=== PATIENT | male | born 1945 | race Caucasian/White ===

== ENCOUNTER 2024-03-22 13:40 | Inpatient (IN) ==
[2024-03-22 14:50] LABS: Basophils # (auto) 0.05 K/uL (0.00-0.20); Basophils % (auto) 0.4 %; Eosinophils # (auto) 0.16 K/uL (0.00-0.50); Eosinophils % (auto) 1.4 %; Hematocrit (blood only) 30.8 % (42.0-52.0); Hemoglobin 10.9 g/dl (14.0-18.0); Immature Granulocytes # (auto) 0.12 K/uL (0.01-0.20); Lymphocytes # (auto) 0.77 K/uL (1.20-3.40); Lymphocytes % (auto) 6.7 %; Mean Corpuscular Hemoglobin 33.4 pg (25.0-34.0); Mean Corpuscular Hgb Conc 35.4 g/dL (32.0-36.0); Mean Corpuscular Volume 94.5 fL (80.0-100.0); Mean Platelet Volume 9.5 fL (9.4-12.4); Monocytes # (auto) 1.21 K/uL (0.11-0.59); Monocytes % (auto) 10.5 %; Neutrophils # (auto) 9.18 K/uL (1.40-6.50); Platelet Count 318 K/uL (130-400); RDW Coefficient of Variation 11.4 % (11.5-14.5); RDW Standard Deviation 39.6 fL (36.4-46.3); Red Blood Count 3.26 M/uL (4.70-6.10); White Blood Count 11.49 K/ul (4.8-10.8)
[2024-03-22 15:09] LABS: Alanine Aminotransferase 9 U/L (7-52); Albumin Globulin Ratio 1.2 (0.9-2); Albumin Level 3.9 gm/dl (3.4-5.0); Alkaline Phosphatase 51 U/L (34-104); Anion Gap 6 (3-11); Aspartate Aminotransferase 16 U/L (13-39); BUN Creatinine Ratio 21.7 (10-20); Blood Urea Nitrogen 13 mg/dl (6-23); Calcium 9.3 mg/dl (8.6-10.3); Carbon Dioxide 30 mmol/L (21-32); Chloride 98 mmol/L (98-107); Est GFR (African American) 110.8 ml/min; Est GFR (Non-African American) 95.6 ml/min; Globulin 3.3 gm/dl (2.5-4.0); Glucose 125 mg/dl (70-99(Fasting)); Potassium 4.5 mmol/L (3.5-5.1); Sodium 134 mmol/L (136-145); Total Protein 7.2 gm/dl (6.0-8.3)
[2024-03-22 15:47] LABS: Appearance Urine Clear (Clear); Bilirubin Urine Negative (Negative); Blood Urine Negative (Negative); Color Urine Yellow; Glucose Urine UA Negative (Negative); Ketones Urine 1+ (Negative); Leukocyte Esterase Urine Negative (Negative); Nitrite Urine Negative (Negative); Protein Urine Negative (Negative); Specific Gravity Urine 1.013 (1.000-1.030); Urobilinogen Urine Negative (Negative); pH Urine 6.5 (4.5-7.5)
--- NOTE | 2024-03-22 16:57 | XRay Report ---
XR knee RT 3V CLINICAL HISTORY: R knee pain s/p surgery COMPARISON: Right knee radiograph March 17, 2024. FINDINGS: Alignment of the total right knee arthroplasty is anatomic. There is no periprosthetic fra cture or unexpected radiopaque foreign body. There are skin bradly. Soft tissue swelling is present. There is a probable right knee joint effusion. IMPRESSION: 1. Intact total right knee arthroplasty. No periprosthetic fractures. No unexpected radiopaque foreig n bodies. 2. Right knee soft tissue swelling with a knee joint effusion. ACT 112: Negative or not required by law. Electronically signed by: Clint Nelson M.D. 03/22/2024 4:56 PM
--- NOTE | 2024-03-22 17:02 | Emergency Department Note ---
Impression & Plan Generalized weakness, Acute pain of right knee, Ambulatory dysfunction ED Provider Note HISTORY OF PRESENT ILLNESS: Patient is a 78-year-old male presenting with generalized weakness. Patient had a right knee replacement performed 1 week ago. at bedside who has been taking care of the patient postoperatively states that he has been declining since the surgery. She reports that he has been too weak to participate in physical therapy at home and that he has been asking for pain medications every hour on the hour secondary to increasing pain in his right knee. She denies the patient having any fevers or chills. Denies any nausea or vomiting. She reports that last night the patient was trying to go to the bathroom every hour stating that he felt like he needed to and she is worried that he might have a urinary tract infection. No reported recent falls or head injuries. Sister reports the patient seems more confused today than normal. Patient is on Eliquis. No recent antibiotic use. reports that she is unable to care for the patient at home. reports that they were trying to get the patient into [facility] rehab, but she does not think that she can care for the patient until that can be coordinated. ROS: as above PHYSICAL EXAM: Constitutional: Patient appears in no acute distress. HENT: Head: Normocephalic and atraumatic. Eyes: EOMI, PERRL Mouth/Throat: Mucous membranes moist. Neck: Trachea midline. Neck supple. Cardiovascular: RRR, No murmurs, rubs or gallops. Intact distal pulses. Pulmonary/Chest: No respiratory distress. Breath sounds clear and equal bilaterally. No wheezes or rales. Abdominal: Abdomen soft, no tenderness, rebound or guarding. Musculoskeletal: - RLE: Surgical incision along the anterior knee is clean/dry/intact. Junction in place. No significant erythema or any drainage expressed from the incision. Patient is able to flex and extend the knee. Able to straight leg raise bilaterally. Skin: Warm and dry. No rash, erythema, pallor or cyanosis Psychiatric: Appropriate mood and affect for situation. Neurological: Alert and keenly responsive. CN II-XII grossly intact, moving all extremities equally and fully. MDM: - Vitals signs showed hypertension - History obtained via patient and patient's . History as above. - Chronic conditions affecting care: Afib; HLD - Differential diagnoses include, but are not limited to: UTI; pneumonia; septic joint; post operative infection; deconditioning - Order placed for continuous cardiac monitoring. At this time, monitor showed rate of 88 bpm with normal sinus rhythm, per my interpretation. - External medical records reviewed. Discharge summary dated 03/17/2024 was reviewed. Patient was admitted at that time for right knee pain and had a total right knee arthroplasty performed on 03/17/2024. - Laboratory workup interpreted by myself showed slight leukocytosis (WBC 11.49); slight hyponatremia (Na 134); elevated CRP (12.50); normal procalcitonin - UA negative for infection - Xray right knee showed a right knee soft tissue swelling with knee joint effusion, per radiology. - CXR negative for pneumonia, per my interpretation - Patient's expresses the patient is unable to care for himself at home and she is unable to care for him as well. Will admit to inpatient service for PT/OT assessment and potential rehab placement. - Discussion was had with case loader operator about patient's case and need for admission - Patient admitted to orthopedic service for further evaluation and management. ASSESSMENT AND PLAN: Diagnosis: generalized weakness; right knee pain; ambulatory dysfunction Plan: admit Past Med/Surg History Problem List (Updated 03/22/24 @ 19:24 by Trudy Fang MD) Ambulatory dysfunction (Acute) Acute pain of right knee (Acute) Generalized weakness (Acute) Confusion Status post right knee replacement Encounter for pre-operative examination Allergic rhinitis (Acute) Elevated PSA (Acute) Medical History History of atrial fibrillation Noted on 2021 [facility] anesthesia progress note > advised to f/u with PCP History of COVID-19 (2022) Resolved Anxiety Insomnia Allergic rhinitis Hyperlipidemia BPH (benign prostatic hyperplasia) Surgical History Hx of tonsillectomy History of surgery Left quadriceps tendon repair (2021) History of colonoscopy Status post total hip replacement, left S/P appendectomy Family History Father Diabetes Mother Diabetes Sister Cancer Other Hypertension Social History Smoking Status: Never smoker Second Hand Exposure: No; Do You Dip or Chew Tobacco: No; Hx Alcohol Use: Yes Alcohol type: wine and hard liquor Hx Substance Use: No Preferred Language: Citizen Of [place] Communication Ability: Effective 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 Beliefs That Will Affect Care: None marital status: Current Living Situation: Spouse current occupational status: retired Feels Safe at Home: Yes Assistive Devices: Walker Allergies Allergies Allergy/AdvReac Type Severity Reaction Status Date / Time azithromycin Allergy Mild Rash Verified 03/22/24 18:29 erythromycin base Allergy Mild Flushing, Verified 03/22/24 18:29 nausea Macrolide Antibiotics Allergy Mild Rash Verified 03/22/24 18:29 Home Meds Home Medications Medication Instructions Recorded Confirmed ascorbic acid (vitamin C) 500 mg 500 mg PO HS ##0 03/19/22 03/22/24 tablet (Vitamin C) clonazepam 0.5 mg tablet 0.5 mg PO HS PRN Anxiety 03/19/22 03/22/24 ezetimibe 10 mg tablet 10 mg PO HS 03/19/22 03/22/24 simvastatin 20 mg tablet 20 mg PO HS 03/19/22 03/22/24 methocarbamol 500 mg tablet 500 mg PO HS PRN Spasms 02/20/24 03/22/24 multivitamin 1 tab PO DAILY 03/22/24 03/22/24 Previous Rx's Medication Instructions Recorded azelastine 137 mcg (0.1 %) nasal 2 sprays intranasal BID PRN 03/04/19 spray allergy symptoms #30 mL cetirizine 10 mg tablet 10 mg PO HS #30 tabs 03/04/19 fluticasone propionate 50 2 sprays intranasal DAILY #9.9 03/04/19 mcg/actuation nasal grams spray,suspension triazolam 0.25 mg tablet 0.25 mg PO HS #90 tabs 03/04/19 apixaban 2.5 mg tablet (Eliquis) 2.5 mg PO BID DVT prophy 30 days 03/18/24 #60 tabs oxycodone-acetaminophen 5 mg-325 1 - 2 tab PO Q6 post op pain 03/18/24 mg tablet (Percocet) control #28 tabs Results & Data (ED) Vital Signs Vital Signs - 24 hr 03/22/24 13:56 03/22/24 16:01 03/22/24 16:03 Temperature 36.7 C Temperature Source Temporal Artery Scan Pulse Rate 82 88 Pulse Rate [Apical] Respiratory Rate 18 17 Respiratory Effort / Characteristics Non-Labored Spontaneous Respiratory Depth Normal Respiratory Pattern Regular Blood Pressure 134/82 149/102 H Blood Pressure [Left Arm] Blood Pressure Mean 99 114 Blood Pressure Mean [Left Arm] Blood Pressure Position Sitting Pulse Oximetry 96 Oxygen Delivery Method Room Air Sepsis Recent Fever Within 48 Hours No Sepsis New/Unexplained Change in Mental Status No Sepsis Action Taken by Nursing No Action Required 03/22/24 16:12 03/22/24 16:30 03/22/24 16:42 Temperature Temperature Source Pulse Rate 88 85 Pulse Rate [Apical] Respiratory Rate 20 18 Respiratory Effort / Characteristics Respiratory Depth Respiratory Pattern Blood Pressure 139/88 Blood Pressure [Left Arm] Blood Pressure Mean 104 Blood Pressure Mean [Left Arm] Blood Pressure Position Pulse Oximetry Oxygen Delivery Method Sepsis Recent Fever Within 48 Hours Sepsis New/Unexplained Change in Mental Status Sepsis Action Taken by Nursing 03/22/24 16:57 03/22/24 17:00 03/22/24 17:00 Temperature Temperature Source Pulse Rate 90 Pulse Rate [Apical] 90 Respiratory Rate 22 18 Respiratory Effort / Characteristics Respiratory Depth Respiratory Pattern Blood Pressure 132/79 Blood Pressure [Left Arm] 132/79 Blood Pressure Mean 120 Blood Pressure Mean [Left Arm] 96 Blood Pressure Position Pulse Oximetry 99 Oxygen Delivery Method Room Air Sepsis Recent Fever Within 48 Hours Sepsis New/Unexplained Change in Mental Status Sepsis Action Taken by Nursing 03/22/24 17:15 03/22/24 17:27 03/22/24 17:30 Temperature Temperature Source Pulse Rate 89 87 Pulse Rate [Apical] Respiratory Rate 16 15 Respiratory Effort / Characteristics Respiratory Depth Respiratory Pattern Blood Pressure 134/76 Blood Pressure [Left Arm] Blood Pressure Mean 106 Blood Pressure Mean [Left Arm] Blood Pressure Position Pulse Oximetry Oxygen Delivery Method Sepsis Recent Fever Within 48 Hours Sepsis New/Unexplained Change in Mental Status Sepsis Action Taken by Nursing 03/22/24 17:39 03/22/24 17:45 03/22/24 18:00 Temperature Temperature Source Pulse Rate 92 H 100 H Pulse Rate [Apical] Respiratory Rate 19 18 Respiratory Effort / Characteristics Respiratory Depth Respiratory Pattern Blood Pressure 155/85 H Blood Pressure [Left Arm] Blood Pressure Mean 112 Blood Pressure Mean [Left Arm] Blood Pressure Position Pulse Oximetry Oxygen Delivery Method Sepsis Recent Fever Within 48 Hours Sepsis New/Unexplained Change in Mental Status Sepsis Action Taken by Nursing 03/22/24 18:03 03/22/24 18:30 Temperature Temperature Source Pulse Rate 91 H Pulse Rate [Apical] Respiratory Rate 17 Respiratory Effort / Characteristics Respiratory Depth Respiratory Pattern Blood Pressure 145/83 H Blood Pressure [Left Arm] Blood Pressure Mean 103 Blood Pressure Mean [Left Arm] Blood Pressure Position Pulse Oximetry Oxygen Delivery Method Sepsis Recent Fever Within 48 Hours Sepsis New/Unexplained Change in Mental Status Sepsis Action Taken by Nursing Laboratory Data 03/22/24 14:23 03/22/24 14:23 Lab Results 03/22/24 03/22/24 Range/Units 14:23 15:25 WBC 11.49 H (4.8-10.8) K/ul RBC 3.26 L (4.70-6.10) M/uL Hgb 10.9 L (14.0-18.0) g/dl Hct 30.8 L (42.0-52.0) % MCV 94.5 (80.0-100.0) fL MCH 33.4 (25.0-34.0) pg MCHC 35.4 (32.0-36.0) g/dL RDW Std Deviation 39.6 (36.4-46.3) fL RDW Coeff of Karla 11.4 L (11.5-14.5) % Plt Count 318 (130-400) K/uL MPV 9.5 (9.4-12.4) fL Immature Gran % (Auto) 1.0 % Neut % (Auto) 80.0 % Lymph % (Auto) 6.7 % [place] % (Auto) 10.5 % Eos % (Auto) 1.4 % Baso % (Auto) 0.4 % Neut # (Auto) 9.18 H (1.40-6.50) K/uL Lymph # (Auto) 0.77 L (1.20-3.40) K/uL [place] # (Auto) 1.21 H (0.11-0.59) K/uL Eos # (Auto) 0.16 (0.00-0.50) K/uL Baso # (Auto) 0.05 (0.00-0.20) K/uL Immature Gran # (Auto) 0.12 (0.01-0.20) K/uL Sodium 134 L (136-145) mmol/L Potassium 4.5 (3.5-5.1) mmol/L Chloride 98 (98-107) mmol/L Carbon Dioxide 30 (21-32) mmol/L Anion Gap 6 (3-11) BUN 13 (6-23) mg/dl Creatinine 0.60 (0.6-1.4) mg/dl Est Cr Clr Drug Dosing Not Reportable Est GFR ( Amer) 110.8 ml/min Est GFR (Non-Af Amer) 95.6 ml/min BUN/Creatinine Ratio 21.7 H (10-20) Glucose 125 H (70-99(Fasting)) mg/dl Calcium 9.3 (8.6-10.3) mg/dl Total Bilirubin 1.0 (0.2-1.0) mg/dl AST 16 (13-39) U/L ALT 9 (7-52) U/L Alkaline Phosphatase 51 (34-104) U/L C-Reactive Protein 12.50 H (0-0.5) mg/dl Total Protein 7.2 (6.0-8.3) gm/dl Albumin 3.9 (3.4-5.0) gm/dl Globulin 3.3 (2.5-4.0) gm/dl Albumin/Globulin Ratio 1.2 (0.9-2) Procalcitonin 0.05 (0-0.5) ng/ml Urine Color Yellow Urine Appearance Clear (Clear) Urine pH 6.5 (4.5-7.5) Ur Specific [place] 1.013 (1.000-1.030) Urine Protein Negative (Negative) Urine Glucose (UA) Negative (Negative) Urine Ketones 1+ H (Negative) Urine Blood Negative (Negative) Urine Nitrite Negative (Negative) Urine Bilirubin Negative (Negative) Urine Urobilinogen Negative (Negative) Ur Leukocyte Esterase Negative (Negative) Administered Medications Discontinued Medications Oxycodone HCl (Oxycodone Hcl Ir 5 Mg Tab (Immediate Release)) 5 mg PO NOW STA Stop: 03/22/24 18:16 Last Admin: 03/22/24 18:19 Dose: 5 mg Documented By: DS Imaging Data Radiologist's Impression: Knee X-Ray 03/22/24 16:15 XR knee RT 3V CLINICAL HISTORY: R knee pain s/p surgery COMPARISON: Right knee radiograph March 17, 2024. FINDINGS: Alignment of the total right knee arthroplasty is anatomic. There is no periprosthetic fracture or unexpected radiopaque foreign body. There are skin bradly. Soft tissue swelling is present. There is a probable right knee joint effusion. IMPRESSION: 1. Intact total right knee arthroplasty. No periprosthetic fractures. No unexpected radiopaque foreign bodies. 2. Right knee soft tissue swelling with a knee joint effusion. ACT 112: Negative or not required by law. Electronically signed by: Clint Nelson M.D. 03/22/2024 4:56 PM Chest X-Ray 03/22/24 17:25 XR chest 1V portable CLINICAL HISTORY: generalized confusion, elevated WBC COMPARISON STUDY: Chest radiograph February 27, 2024. FINDINGS: Lung volumes are normal. There is no consolidation to suggest pneumonia. A calcified right lung granuloma is unchanged. This is benign. There is no pneumothorax or pleural effusion. Cardiac size is normal. Mediastinal contours are normal. There is no evidence for pulmonary edema. IMPRESSION: No acute cardiopulmonary findings. ACT 112: Negative or not required by law. Electronically signed by: Clint Nelson M.D. 03/22/2024 6:07 PM Discharge Plan Visit Data Chief Complaint: Knee Injury/Pain Stated Complaint: KNEE PROBLEM ED Provider: Trudy Fang Discharge Problem: Generalized weakness, Acute pain of right knee, Ambulatory dysfunction Forms Stand Alone Forms: [facility] Prescriptions Prescriptions: No Action azelastine 137 mcg (0.1 %) aerosol,spray 2 sprays intranasal BID PRN (Reason: allergy symptoms) Qty: 30 2RF Rx Instructions: 1-2 sprays intranasal BID PRN; cetirizine 10 mg tablet 10 mg PO HS Qty: 30 0RF fluticasone propionate 50 mcg/actuation spray,suspension 2 sprays intranasal DAILY Qty: 9.9 0RF triazolam 0.25 mg tablet 0.25 mg PO HS Qty: 90 0RF clonazepam 0.5 mg Tablet 0.5 mg PO HS PRN (Reason: Anxiety) Rx Instructions: administer 30 minutes before bedtime simvastatin 20 mg tablet 20 mg PO HS ezetimibe 10 mg tablet 10 mg PO HS ascorbic acid (vitamin C) [Vitamin C] 500 mg Tablet 500 mg PO HS Qty: 0 methocarbamol 500 mg Tablet 500 mg PO HS PRN (Reason: Spasms) Eliquis 2.5 mg Tablet 2.5 mg PO BID 30 Days Qty: 60 0RF oxycodone-acetaminophen [Percocet] 5-325 mg tablet 1 - 2 tab PO Q6 MDD Ongoing Tx Qty: 28 0RF multivitamin Tablet 1 tab PO DAILY Referrals Referrals: Karolina Verdugo MD [Primary Care Provider] -
--- NOTE | 2024-03-22 18:05 | Hospitalist Consultation ---
Date of Consultation March 22, 2024 Assessment & Plan (1) Status post total knee replacement: VTE / Pain / Bowel management per primary orthopedic team Admitted by orthopedics for PT/OT likely need for placement (2) Leucocytosis: No infectious cause found on admission from history/exam/UA/CXR Recommend trending with AM labs (3) Confusion: Suspect due to combination of benzodiazepines and opiates given lack of infection found Discussed with orthopedics and planning on discontinuing opiates (4) BPH (benign prostatic hyperplasia): PVR 74ml bladder scan Consider tamsulosin if continued significant nocturia (5) Hyperlipidemia: Continue ezetimibe + Simvastatin History of Present Illness Reason for Consultation: medical management Attending Physician: Dr Fuller History of Present Illness Rolan Mcneil is a 78 year old male who presents to the ER with failure to thrive at home follow right total knee replacement by orthopedics on March 17. He reports not doing well at home and needing to go to rehabilitation. Significant nocturia. reports increased confusion at home and confirms he isn't able to get up and move around at home. Taking Percocets regularly. Some concern about alcohol mentioned to the orthopedics team although the patient denies any alcohol since his operation to me. No chest pain, fever, chills, shortness of breath, cough, abdominal pain, change in bowels, nausea, vomiting or urinary symptoms other than nocturia. Allergies Allergy/AdvReac Type Severity Reaction Status Date / Time azithromycin Allergy Mild Rash Verified 03/22/24 18:29 erythromycin base Allergy Mild Flushing, Verified 03/22/24 18:29 nausea Macrolide Antibiotics Allergy Mild Rash Verified 03/22/24 18:29 Home Medications Medication Instructions Recorded Confirmed Type azelastine 137 mcg (0.1 %) nasal 2 sprays intranasal BID PRN 03/04/19 03/22/24 Rx spray allergy symptoms #30 mL cetirizine 10 mg tablet 10 mg PO HS #30 tabs 03/04/19 03/22/24 Rx fluticasone propionate 50 2 sprays intranasal DAILY #9.9 03/04/19 03/22/24 Rx mcg/actuation nasal grams spray,suspension triazolam 0.25 mg tablet 0.25 mg PO HS #90 tabs 03/04/19 03/22/24 Rx ascorbic acid (vitamin C) 500 mg 500 mg PO HS ##0 03/19/22 03/22/24 History tablet (Vitamin C) clonazepam 0.5 mg tablet 0.5 mg PO HS PRN Anxiety 03/19/22 03/22/24 History ezetimibe 10 mg tablet 10 mg PO HS 03/19/22 03/22/24 History simvastatin 20 mg tablet 20 mg PO HS 03/19/22 03/22/24 History methocarbamol 500 mg tablet 500 mg PO HS PRN Spasms 02/20/24 03/22/24 History apixaban 2.5 mg tablet (Eliquis) 2.5 mg PO BID DVT prophy 30 days 03/18/24 03/22/24 Rx #60 tabs oxycodone-acetaminophen 5 mg-325 1 - 2 tab PO Q6 post op pain 03/18/24 03/22/24 Rx mg tablet (Percocet) control #28 tabs multivitamin 1 tab PO DAILY 03/22/24 03/22/24 History Patient History Medical History History of atrial fibrillation Noted on 2021 [facility] anesthesia progress note > advised to f/u with PCP History of COVID-19 (2022) Resolved Anxiety Insomnia Allergic rhinitis Hyperlipidemia BPH (benign prostatic hyperplasia) Surgical History Hx of tonsillectomy History of surgery Left quadriceps tendon repair (2021) History of colonoscopy Status post total hip replacement, left S/P appendectomy Family History Father Diabetes Mother Diabetes Sister Cancer Other Hypertension Social History Smoking Status: Never smoker Second Hand Exposure: No; Do You Dip or Chew Tobacco: No; Tobacco Cessation Education Requested by Patient: No Hx Alcohol Use: Yes Alcohol type: hard liquor Hx Substance Use: No Preferred Language: Frisian Communication Ability: Effective Rug Clipper Required: No Beliefs That Will Affect Care: None marital status: Current Living Situation: Spouse current occupational status: retired Other Information That Helps Us Care for You: No Feels Safe at Home: Yes Safety Concerns: Feels Safe At This Time Assistive Devices: Contacts and Walker Review of Systems Review of Systems: All systems reviewed & are unremarkable except as noted in HPI & below Physical Exam Constitutional: WD/WN, vitals as above Eyes: + anicteric sclerae; normal pupil size ENMT: external ear and nose normal, oropharynx normal Respiratory: normal respiratory effort, lungs clear to auscultation Cardiovascular: RRR, no murmur, no edema Gastrointestinal (Abdomen): normal bowel sounds, soft, nontender, no hepatosplenomegaly Skin: surgical incision inspected with orthopedics and appears clean / dry / intact Neurologic: moves all extremities and awake; not confused Psychiatric: A+Ox3, euthymic affect Results & Data Results & Data Vital Signs (Past 12 Hours) Vital Signs Temp Pulse Pulse Resp BP BP Pulse Ox 03/22/24 17:00 90 18 132/79 99 03/22/24 16:03 88 17 03/22/24 16:01 149/102 H 03/22/24 13:56 36.7 C 82 18 134/82 96 O2 Del Method 03/22/24 17:00 Room Air 03/22/24 16:03 03/22/24 16:01 03/22/24 13:56 Room Air Laboratory Results Abnormal lab results 03/22/24 03/22/24 Range/Units 14:23 15:25 WBC 11.49 H (4.8-10.8) K/ul RBC 3.26 L (4.70-6.10) M/uL Hgb 10.9 L (14.0-18.0) g/dl Hct 30.8 L (42.0-52.0) % RDW Coeff of Karla 11.4 L (11.5-14.5) % Neut # (Auto) 9.18 H (1.40-6.50) K/uL Lymph # (Auto) 0.77 L (1.20-3.40) K/uL [place] # (Auto) 1.21 H (0.11-0.59) K/uL Sodium 134 L (136-145) mmol/L BUN/Creatinine Ratio 21.7 H (10-20) Glucose 125 H (70-99(Fasting)) mg/dl C-Reactive Protein 12.50 H (0-0.5) mg/dl Urine Ketones 1+ H (Negative) Diagnostic Findings XR chest 1V portable CLINICAL HISTORY: generalized confusion, elevated WBC COMPARISON STUDY: Chest radiograph February 27, 2024. FINDINGS: Lung volumes are normal. There is no consolidation to suggest pneumonia. A calcified right lung granuloma is unchanged. This is benign. There is no pneumothorax or pleural effusion. Cardiac size is normal. Mediastinal contours are normal. There is no evidence for pulmonary edema. IMPRESSION: No acute cardiopulmonary findings. Medications Administered ER Medications Given: Oxycodone 5mg PO PG Care Time/CCT Total # of Minutes Spent Total Time Spent with Patient: Total time spent is greater than 50% in coordination of care (as documented) at patient's floor/unit and/or counseling patient: Coding Level of Care Code 70240 IN/OBS CONSULT LVL 3,45M Diagnoses Status post total knee replacement Z96.659 Leucocytosis D72.829 Confusion R41.0 BPH (benign prostatic hyperplasia) N40.0 Hyperlipidemia E78.5
--- NOTE | 2024-03-22 18:08 | XRay Report ---
XR chest 1V portable CLINICAL HISTORY: generalized confusion, elevated WBC COMPARISON STUDY: Chest radiograph February 27, 2024. FINDINGS: Lung volumes are normal. There is no consolidation to suggest pneumonia. A calcified right lung granuloma is unchanged. This is benign. There is no pneumothorax or pleural effusion. Cardiac si ze is normal. Mediastinal contours are normal. There is no evidence for pulmonary edema. IMPRESSION: No acute cardiopulmonary findings. ACT 112: Negative or not required by law. Electronically signed by: Clint Nelson M.D. 03/22/2024 6:07 PM
[2024-03-22] MEDS: oxyCODONE HCL IR 5 MG TAB (IMMEDIATE RELEASE) PO STA (18:19)
--- NOTE | 2024-03-22 18:45 | History & Physical Report ---
<Statement entered by Berry Fuller MD - 03/22/24 20:53> agree with above. Date of Service March 22, 2024 Assessment & Plan (1) Status post right knee replacement: Plan: The patient's postsurgical dressings will be kept in place. Continue with his SAMUEL hose for DVT prophylaxis. Continue Eliquis 2.5 mg twice daily. He missed his dose this morning according to his , and he will be restarted this evening. Continue ice and elevation for pain and edema control. We will stop his narcotics. Start Tylenol 650 mg every 6 hours and Celebrex 200 mg daily for pain control. Stat PT/OT evaluations in the morning in anticipation of half-way facility placement. This will be applied for tomorrow. The patient is clearly not doing well at home and does not have the support network that he needs. [facility] was [facility] while he was initially inpatient after surgery, and was declined at that time. Weightbearing as tolerated on the right leg with his walker. (2) Confusion: Plan: The patient is on 2 benzodiazepines. Addition of oxycodone may have exacerbated his confusion. His narcotic will be stopped. Start Tylenol and Celebrex as stated. Consult the medical service for evaluation. The patient is known to drink liquor, and his states it is heavy at times. This may have also added to his confusion. I will discuss the antibiotic supplementation with the hospitalist team. He does not appear to have a urinary tract infection. There is no significant anemia or electrolyte imbalance to contribute to his symptoms. Chest x-ray does not suggest infection. Therefore, I think his confusion symptoms may be medication induced. Admission and Anticipated Discharge Date Admission Date: 03/22/24 History of Present Illness Chief Complaint: Confusion and urinary urgency after right knee surgery Primary Care Provider: Karolina Verdugo MD This 78-year-old male seen today in the ED for evaluation of several complaints. The patient previously had a right total knee arthroplasty done by Dr. Fuller on 03/17/2024. Patient did well postoperatively and was discharged to home on 03/18/2024. He is being cared for by his . She states that over the weekend he became more confused and was complaining of urinary urgency and frequency. The patient did not have a urinary catheter at the time of surgery. They deny any fevers or chills. No sweats. He has had some episodes of diarrhea and frequent loose stools. He has been receiving home health and had home physical therapy today. His therapist reportedly had to redirect him many times, but he was able to complete his therapy session. At this time, his states she can no longer take care of him at home due to her own physical ailments. [facility] are [facility] at [facility] or [facility]-way facility. The patient denies any chest pain, shortness of breath, nausea, vomiting, or abdominal pain. They have been keeping his knee clean, covered, and dry. Allergies Allergy/AdvReac Type Severity Reaction Status Date / Time azithromycin Allergy Mild Rash Verified 03/22/24 18:29 erythromycin base Allergy Mild Flushing, Verified 03/22/24 18:29 nausea Macrolide Antibiotics Allergy Mild Rash Verified 03/22/24 18:29 Home Medications Medication Instructions Recorded Confirmed Type azelastine 137 mcg (0.1 %) nasal 2 sprays intranasal BID PRN 03/04/19 03/22/24 Rx spray allergy symptoms #30 mL cetirizine 10 mg tablet 10 mg PO HS #30 tabs 03/04/19 03/22/24 Rx fluticasone propionate 50 2 sprays intranasal DAILY #9.9 03/04/19 03/22/24 Rx mcg/actuation nasal grams spray,suspension triazolam 0.25 mg tablet 0.25 mg PO HS #90 tabs 03/04/19 03/22/24 Rx ascorbic acid (vitamin C) 500 mg 500 mg PO HS ##0 03/19/22 03/22/24 History tablet (Vitamin C) clonazepam 0.5 mg tablet 0.5 mg PO HS PRN Anxiety 03/19/22 03/22/24 History ezetimibe 10 mg tablet 10 mg PO HS 03/19/22 03/22/24 History simvastatin 20 mg tablet 20 mg PO HS 03/19/22 03/22/24 History methocarbamol 500 mg tablet 500 mg PO HS PRN Spasms 02/20/24 03/22/24 History apixaban 2.5 mg tablet (Eliquis) 2.5 mg PO BID DVT prophy 30 days 03/18/24 03/22/24 Rx #60 tabs oxycodone-acetaminophen 5 mg-325 1 - 2 tab PO Q6 post op pain 03/18/24 03/22/24 Rx mg tablet (Percocet) control #28 tabs multivitamin 1 tab PO DAILY 03/22/24 03/22/24 History Past Med/Surg History Problem List (Updated 03/22/24 @ 18:47 by Evangelist Dewey PA-C) Confusion Status post right knee replacement Encounter for pre-operative examination Allergic rhinitis (Acute) Elevated PSA (Acute) Medical History History of atrial fibrillation Noted on 2021 [facility] anesthesia progress note > advised to f/u with PCP History of COVID-19 (2022) Resolved Anxiety Insomnia Allergic rhinitis Hyperlipidemia BPH (benign prostatic hyperplasia) Surgical History Hx of tonsillectomy History of surgery Left quadriceps tendon repair (2021) History of colonoscopy Status post total hip replacement, left S/P appendectomy Family History Father Diabetes Mother Diabetes Sister Cancer Other Hypertension Social History Smoking Status: Never smoker Second Hand Exposure: No; Do You Dip or Chew Tobacco: No; Hx Alcohol Use: Yes Alcohol type: wine and hard liquor Hx Substance Use: No Preferred Language: Korean Communication Ability: Effective Supervisor Process Testing Required: No Beliefs That Will Affect Care: None marital status: Current Living Situation: Spouse current occupational status: retired Feels Safe at Home: Yes Assistive Devices: Walker Review of Systems Review of Systems: All systems reviewed & are unremarkable except as noted in HPI & below Physical Exam Physical Exam: General: Frail, elderly male, in no acute distress. Laying in bed. Alert and oriented to place, but does exhibit intermittent confusion when searching for words or completing his sentences. Petite individual. Skin: Warm and dry with good turgor. No rashes. He has a postsurgical incision on the right knee. Pollock are in place. Wound edges are well-approximated. No erythema or warmth. No drainage. No signs of infection. Minimal intra- articular effusion. No significant peripheral edema. HEENT: Normocephalic atraumatic. Eyes PERRLA, EOMI. No conjunctiva or scleral injection. Ears TMs intact bilaterally with good light reflexes. No erythema or bulging. No hemotympanum. Canals are patent. Nares patent bilaterally without turbinate enlargement. No significant drainage. No epistaxis. Oropharynx without erythema or exudate. Uvula midline, oral mucosa moist. No lesions present. Lymphatics are palpated without anterior or posterior chain enlargement or tenderness. Heart: Heart RRR. No MGR. Peripheral pulses are 2+. Lungs: Clear to auscultation bilaterally. No crackles, rhonchi, or wheezing. Good air movement. Abdomen: Bowel sounds present x 4. Soft nontender. No organomegaly. No masses. Musculoskeletal: Gross motor function of the upper and lower extremities is intact and unremarkable. He lacks approximately 5 to 10 degrees of terminal extension. Flexion to 65 degrees. He is able to perform a straight leg raise. He is able to set his quad. Neurologic: Gross sensation is intact across the lower extremities by soft touch. Peripheral pulses are 2+. Psych: The patient is alert and oriented to place as stated. He is perseverating about his Percocet dose. He states he is due for it now. He states he does not have any additional pills at home because they were dropped on the floor lost. His corrects him stating that they were not lost and he just simply ran out. During my evaluation he asked for Percocet at least 6 times. Occasional difficulty finding words. Results & Data Results & Data Vital Signs (Past 12 Hours) Vital Signs Temp Pulse Pulse Resp BP BP Pulse Ox 03/22/24 18:03 91 H 17 03/22/24 18:00 155/85 H 03/22/24 17:45 100 H 18 03/22/24 17:39 92 H 19 03/22/24 17:30 134/76 03/22/24 17:27 87 15 03/22/24 17:15 89 16 03/22/24 17:00 132/79 03/22/24 17:00 90 18 132/79 99 03/22/24 16:57 90 22 03/22/24 16:42 85 18 03/22/24 16:30 139/88 03/22/24 16:12 88 20 03/22/24 16:03 88 17 03/22/24 16:01 149/102 H 03/22/24 13:56 36.7 C 82 18 134/82 96 O2 Del Method 03/22/24 18:03 03/22/24 18:00 03/22/24 17:45 03/22/24 17:39 03/22/24 17:30 03/22/24 17:27 03/22/24 17:15 03/22/24 17:00 03/22/24 17:00 Room Air 03/22/24 16:57 03/22/24 16:42 03/22/24 16:30 03/22/24 16:12 03/22/24 16:03 03/22/24 16:01 03/22/24 13:56 Room Air Laboratory Results CBC obtained today shows a white count of 11.49. H&H of 10.9 and 30.8. Platelets are normal at 318,000. CMP shows normal electrolytes. BUN of 13 with creatinine 0.60. Nonfasting glucose is 125. Normal calcium. Normal LFTs. C- reactive protein is elevated today at 12.5, which is not unexpected given his surgery 5 days ago. Procalcitonin is normal at 0.05. UA obtained today shows clear yellow urine with negative leukocyte Estrace, nitrates, and bilirubin. 1+ ketones. Diagnostic Findings Right knee x-ray obtained today was read by radiology as unremarkable. Expected postsurgical findings. Chest x-ray obtained today was also read by radiology. No consolidations to suggest pneumonia. Previous right calcified granuloma is unchanged. No pneumothorax or pleural effusion. Code Status & VTE Plan VTE Prophylaxis Plan VTE Prophylaxis will be ordered: Yes
[2024-03-22] MEDS ORDERED: MAGNESIUM HYDROXIDE SUSP 30 ML UDC PO PRN (18:53)
[2024-03-22] MEDS ORDERED: ONDANSETRON INJ 2 MG/ML 2 ML VIAL IV PRN (18:53)
[2024-03-22] MEDS ORDERED: ALUMINUM/MAGNESIUM SUSP 30 ML UDC PO PRN (18:53)
[2024-03-22] MEDS ORDERED: AZELASTINE HCL 0.1% NASAL 200 SPRAYS/27,400 MCG BTL NAE PRN (19:02)
[2024-03-22] MEDS ORDERED: METHOCARBAMOL 500 MG TABLET PO PRN (19:02)
[2024-03-22] MEDS: APIXABAN 2.5 MG TAB PO SCH (21:58)
[2024-03-22] MEDS: SIMVASTATIN 20 MG TAB PO SCH (21:58)
[2024-03-22] MEDS: EZETIMIBE 10 MG TAB PO SCH (21:58)
[2024-03-22] MEDS: CeleBREX 200 MG CAP PO SCH (21:58)
[2024-03-22] MEDS: CETIRIZINE HCL 10 MG TABLET PO SCH (21:58)
[2024-03-22] MEDS: ASCORBIC ACID 500 MG TAB PO SCH (21:58)
[2024-03-22] MEDS: ACETAMINOPHEN 325 MG TAB PO PRN (23:55)
[2024-03-23] MEDS: clonazePAM 0.5 MG TAB PO PRN (00:59)
--- OUTSIDE RECORDS SUMMARY | 2024-03-23 01:58 | External Medical Summary | Continuity of Care Document ---
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 Machine Name Role Phone Lucina Karolina Primary Care Physician [phone] [id number] Date(s): 03/15/24 - 03/15/24 [facility] [address], [address] [place] [address] [phone] Encounter Diagnosis Preop examination(Discharge Diagnosis) - 03/15/24 Ectopic atrial rhythm(Discharge Diagnosis) - 03/15/24 Discharge Disposition: Home or Self Care Attending Physician: DO Hernandez Michelle L Allergies, Adverse Reactions, Alerts Substance Criticality Severity Reaction Reaction Severity Status erythromycin vomiting Active Bee sting anaphylaxis Active Assessment and Plan Extracted from: Title:Cardiology Office Visit Note Author:DO Hernandez Michelle L Date:03/15/24 Ectopic atrial rhythm Preop examination From a cardiac standpoint he does not require further cardiovascular testing at this time. His EKG is identical to the one from 2021. In addition he did have a stress echoback [id number] good exercise tolerancewithout EKG or echo abnormalities. I asked him to touch base with regarding his usualrecommendations regarding DVT prophylaxis. I would not be opposed if he was given aspirin postophowever that would be up to Dr. Fuller. You for allowing me to participate in his care. If there are any questions or concerns with his surgery, please feel free to contact me. Immunizations Given and Recorded Vaccine Date Status Refusal Reason influenza virus vaccine, inactivated 03/11/22 Carlos rded influenza virus vaccine, inactivated 03/30/21 Carlos rded influenza virus vaccine, inactivated 04/13/20 Carlos rded influenza virus vaccine, inactivated 05/06/14 Give n SARS-CoV-2 (COVID-19) mRNA-1273 vaccine 1 05/24/21 Recorded zoster vaccine, inactivated 06/16/19 Recorded zoster vaccine, inactivated 02/10/19 Recorded pneumococcal 13-valent vaccine 2 04/29/18 Recorded pneumococcal 13-valent vaccine 3 04/28/17 Recorded hepatitis B adult vaccine 09/24/17 Given hepatitis B adult vaccine 06/02/17 Given hepatitis B adult vaccine 03/13/17 Recorded hepatitis A adult vaccine 09/24/17 Given hepatitis A adult vaccine 03/13/17 Recorded hepatitis A-hepatitis B vaccine 4 03/17/17 Recorde d pneumococcal 23-valent vaccine 04/03/16 Recorded pneumococcal 23-valent vaccine 05/20/11 Recorded tetanus/diphtheria/pertuss, acel (Tdap) 03/30/14 G iven typhoid vaccine, live 12/07/13 Recorded zoster vaccine live 01/06/13 Recorded zoster vaccine live 07/28/10 Recorded zoster vaccine live 5 07/28/10 Recorded influenza virus vaccine, H1N1 6 08/26/09 Recorded yellow fever vaccine 01/12/08 Recorded tetanus toxoids-diphtheria, Td (Adult) 07/28/06 Re corded tetanus toxoids-diphtheria, Td (Adult) 7 07/28/06 Recorded tetanus toxoid 07/28/96 Recorded tetanus toxoid 8 07/28/96 Recorded 1Result Comment: 2021-06-04: Historical information-source unspecified 2Result Comment: 2019-05-19: Historical information-source unspecified 3Result Comment: 2019-05-19: Historical information-source unspecified 4Result Comment: 2019-05-19: Historical information-source unspecified 5Result Comment: 2019-05-19: Historical information-source unspecified 6Result Comment: 2020-05-22: Historical information-source unspecified 7Result Comment: 2019-05-19: Historical information-source unspecified 8Result Comment: 2019-05-19: Historical information-source unspecified Medications azelastine 137 mcg/inh (0.1%) nasal spray Start: 06/04/21 2:09:00 PM EST, 2 spray, each nostril, bid, Disp# 3 each, Refills: 3, PRN: as neededfor allergy symptoms, Pharmacy: [facility] Start Date: 06/04/21 Status: Ordered Cialis 20 mg oral tablet Start: 06/09/23 1:35:00 PM EST, See Instructions, Disp# 6 tab, Refills: 6, 1 tab PO every 3 days prn, PRN: as needed for erectile dysfunction, Pharmacy: [id number] Start Date: 06/09/23 Status: Ordered clonazePAM 0.5 mg oral tablet Start: 02/10/24 8:30:00 AM EDT, 1 tab, PO, bid, Disp# 60 tab, Refills: 1, PRN: anxiety, Pharmacy: [facility]/pharmacy #[id number] Start Date: 02/10/24 Stop Date: 04/10/24 Status: Ordered diclofenac sodium 75 mg oral delayed release tablet Start: 04/01/23 3:00:00 PM EDT, 1 tab, PO, bid, Disp# 180 tab, Refills: 3, PRN: as needed for pain, Pharmacy: [facility] Start Date: 04/01/23 Status: Ordered Euflexxa 10 mg/mL intra-articular solution Start: 10/09/23 5:31:00 PM EDT, 20 mg =, intra-articular, q7days, Disp# 6 mL, Refills: 0, R KNEE [id number], Note to Pharmacy: 3 syringes for R knee. Please ship to physician's office: [address] [place] [address], [place] [id number], Pharmacy: [facility] Start Date: 10/09/23 Stop Date: 10/30/23 Status: Ordered Flonase 50 mcg/inh nasal spray Start: 02/26/22 9:45:00 AM EDT, 2 spray, intranasal, Daily, Disp# 15.8 mL, Refills: 3, Pharmacy: [facility] Start Date: 02/26/22 Status: Ordered simvastatin 20 mg oral tablet Start: 09/25/23 4:09:00 PM EST, 1 tab, PO, qhs, Disp# 90 tab, Refills: 4, Pharmacy: [facility] Start Date: 09/25/23 Status: Ordered triazolam 0.25 mg oral tablet Start: 02/10/24 8:35:00 AM EDT, 1 tab, PO, qhs, Disp# 30 tab, Refills: 1, PRN: as needed for sleep, Pharmacy: [facility]/pharmacy #[id number] Start Date: 02/10/24 Stop Date: 04/10/24 Status: Ordered Zetia 10 mg oral tablet Start: 04/01/23 3:00:00 PM EDT, 1 tab, PO, Daily, Disp# 90 tab, Refills: 3, Pharmacy: [facility] Start Date: 04/01/23 Status: Ordered Mental Status 03/15/24 Barriers to Learning one year None evide nt Mandatory Health Literacy Documentation Yes Health Literacy Communication Barriers N ever Primary Language Ukrainian Problem List Condition Confirmation Course Effective Dates Status H ealth Status Informant DDD (degenerative disc disease), cervical Confirmed Active Generalized anxiety disorder Confirmed Active Hip 1 Confirmed Active Hip pain, bilateral Confirmed Active Insomnia Confirmed Active Insomnia due to medical condition Confirmed Active Osteoarthritis of hip Confirmed Active Right knee DJD Confirmed Active Rupture of left quadriceps tendon Confirmed Active Seasonal allergies Confirmed Active 1B/L hip OA Diagnosis Diagnosis Type Effective Dates Health Status Clinical Service Informant Ectopic atrial rhythm Discharge Diagnosis 03/15/24 Non-Specified Preop examination Discharge Diagnosis 03/15/24 Non-Specified Procedures Procedure Date Related Diagnosis Body Site Status Repair of quadriceps tendon left 03/21/[address] of cervical spine 1 03/15/[address] of head 2 03/15/[address] of lumbar spine 3 03/15/[address] of thoracic spine 4 03/15/22 Co mpleted X-ray of left knee 5 03/15/22 Comp leted Colonoscopy 6 04/15/14 Completed Appendectomy 1970 Completed Colonoscopy 7 Completed Hip replacement 8 Complet ed Scalp 9 Completed 1mpressio fractures within the cervical spine 2Impression: No acute intracranial abnormality. Atrophy and microvascular ischemic changes. 3Impression: No fractures within the lumbar spine. 4Impression: No fractures within the thoracic spine. 5Impression: Suspect an avulsion fracture along the superior pole of the patella with superiorly displaced fragments. There is significant prepatellar soft tissue edema, withsoft tissue thickening superiro to the patella. This could represent a ruptured and retracted quadriceps tendon clinically suspected. No additional fracture is seen. Joint effusion. 6Non bleeding internal hemorrhoids. 34939: normal 8left 9seb cysts remvd Vital Signs Most recent to oldest [Reference Range]: 1 Patient Weight 52.5 kg (03/15/24 12:33 PM) Heart Rate 90 bpm (03/15/24 12:33 PM) Respiratory Rate 18 br/min (03/15/24 12:33 PM) Blood Pressure 122/68mmHg (03/15/24 12:33 PM) Cuff Pulse Pressure 54 mmHg (03/15/24 12:33 PM) Social History Social History Type Response Smoking Status Never smoked cigaret jb Sex Male Sex Representation Male (finding) Cardiology Outpatient Note * DO Hernandez Michelle L: PERFORM Event Display: Cardiology Outpt Note Authored Date: [id number] Primary Care Provider MD Lucina, [place] Referring Provider Dr. Berry Fuller Reason for Consultation Preop clearance History of Present Illness Dr. 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 He has been active for most of his adult life. 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 Over the last 3 to 4 months he has developed significant right knee problemsand is here for preop clearance prior to right total knee replacement with Dr. Fuller later this week. There was some concernregarding hispreop EKG. It shows a baseline ectopic atrial rhythmwith a short DC interval however this EKG looks identical to the EKG he had in 2021. His P wave the DC interval were identical and there were no other EKG changesat the time. In addition a postop EKG must have been done because of an irregular heartbeat and I think it is misinterpreted as having A-fibwhen it is actually the ectopic atrial rhythm with just PACs. There is a little bit of baseline artifact however in leads II and III you can clearly see P waves on thatold EKG from March 21and I thinkthis was notA-fib. From a cardiovascular standpoint he denies any cardiac symptoms. He denies chest discomfortshortness of breathlower extremity edema. Prior to 3 to 4 months ago he wasfairly activegivenhis orthopedicissues. Review of Systems General: no fevers, chills, weight loss of gain HEENT: no changes in vision or hearing; no recent falls or head trauma Cardiac: No other symptoms other than reported in HPI Pulmonary: No symptoms other than reported in HPI Abdomen: No changes in bowel habits, nausea, vomiting, no BRBPR : no changes in urine frequency Extremities: no edema or claudication Physical Exam Vitals & Measurements HR:90(Monitored) RR:18 BP:122/68 SpO2:98% WT:52.5kg WT:52.500kg(Dosing) Patient is awake alert and oriented x3and in no acute distress HEENT:2+ carotid upstrokes, no evidence of carotid bruits LUNGS:Clear to auscultation bilaterally no rales rhonchi or wheezing HEART:Regular rate and rhythmno appreciable murmurs rubs or gallops ABDOMEN:Soft nontender nondistended positive bowel sounds EXTREMITIES:No evidence of clubbing cyanosis or edema PSYCHIATRIC:Patients affect appeared appropriate Diagnostic Results Stress echo from 2019 normal LV function no significant valvular abnormalities normal exercise tolerance EKG Ectopic atrial rhythm with a short DC intervalno ST-T wave changes Assessment/Plan Ectopic atrial rhythm Preop examination From a cardiac standpoint he does not require further cardiovascular testing at this time. His EKG is identical to the one from 2021. In addition he did have a stress echoback [id number] good exercise tolerancewithout EKG or echo abnormalities. I asked him to touch base with regarding his usualrecommendations regarding DVT prophylaxis. I wouldnot be opposed if he was given aspirin postophowever that would be up to Dr. Fuller. You for allowing me to participate in his care. If there are any questions or concerns with his surgery, please feel free to contact me. Problem List/Past Medical History Ongoing DDD (degenerative disc disease), cervical Generalized anxiety disorder Hip Hip pain, bilateral Insomnia Insomnia due to medical condition Osteoarthritis of hip Right knee DJD Rupture of left quadriceps tendon Seasonal allergies Ectopic atrial rhythm on EKG 2021 and 2023Short DC interval Procedure/Surgical History Repair of quadriceps tendon left| Service Date: 03/21/2022T of lumbar spine| Service Date: 03/15/2022T of head| Service Date: 03/15/2022T of thoracic spine| Service Date: 03/15/2022T of cervical spine| Service Date: 03/15/2022X-ray of left knee| Service Date: 03/15/2022olonoscopy| Service Date: 04/15/2014ppendectomy| Service Date: 1969ColonoscopyHip replacementScalp Medications azelastine nasal(azelastine 137 mcg/inh (0.1%) nasal spray), 2 spray, each nostril, bid, PRN, 3 refills clonazePAM(clonazePAM 0.5 mg oral tablet), 0.5 mg= 1 tab, PO, bid, PRN, 1 refills diclofenac(diclofenac sodium 75 mg oral delayed release tablet), 75 mg= 1 tab, PO, bid, PRN, 3 refills ezetimibe(Zetia 10 mg oral tablet), 10 mg= 1 tab, PO, Daily, 3 refills fluticasone nasal(Flonase 50 mcg/inh nasal spray), 2 spray, intranasal, Daily, 3 refills simvastatin(simvastatin 20 mg oral tablet), 20 mg= 1 tab, PO, qhs, 4 refills sodium hyaluronate(Euflexxa 10 mg/mL intra-articular solution), 20 mg, intra- articular, q7days tadalafil(Cialis 20 mg oral tablet), See Instructions, PRN, 6 refills triazolam(triazolam 0.25 mg oral tablet), 0.25 mg= 1 tab, PO, qhs, PRN, 1 refills Allergies Bee stinganaphylaxis erythromycinvomiting Social History Smoking Status Never smoked cigarettes Alcohol - Low Risk Employment/School Status:Retired Exercise - Regular exercise - Comments: biking 20-30 m evelio 2-3 times a week Tobacco - Denies Tobacco Use Family History Diabetes: Father. Glioma: Sister. Heart attack: MGF. Uterine cancer: Mother. Health Status Family Member(s) Electronic Signature on File CC: Berry Fuller MD [address] [id number] CC: Karolina Verdugo MD [address] [facility] [id number] Electronically Reviewed/Signed by: Felicity Hernandez DO Author Signature Dt/Tm:03/15/2024 01:22 PM Division of General Cardiology MLS Patient Care team information Care Team Personnel Name: MD Verdugo [place] Position: Physician - Family Med Member Role: Primary Care Provider Address: [address] [place] [address], [place] [address] [place] Care Team Related Persons Name: LINDSEY ALVARADO"
[2024-03-23] MEDS: MULTIVITAMIN TAB PO SCH (07:38)
[2024-03-23] MEDS: PANTOprazole 40 MG TAB PO SCH (07:38)
[2024-03-23] MEDS: FLUTICASONE PROPIONATE NA SPR 16 GM BTL SCH (07:39)
[2024-03-23 08:45] LABS: Basophils # (auto) 0.05 K/uL (0.00-0.20); Basophils % (auto) 0.7 %; Eosinophils # (auto) 0.22 K/uL (0.00-0.50); Hematocrit (blood only) 27.8 % (42.0-52.0); Hemoglobin 9.8 g/dl (14.0-18.0); Immature Granulocytes # (auto) 0.03 K/uL (0.01-0.20); Immature Granulocytes % (auto) 0.4 %; Lymphocytes # (auto) 1.01 K/uL (1.20-3.40); Lymphocytes % (auto) 13.8 %; Mean Corpuscular Hemoglobin 32.9 pg (25.0-34.0); Mean Corpuscular Hgb Conc 35.3 g/dL (32.0-36.0); Mean Corpuscular Volume 93.3 fL (80.0-100.0); Mean Platelet Volume 9.5 fL (9.4-12.4); Monocytes # (auto) 1.03 K/uL (0.11-0.59); Monocytes % (auto) 14.1 %; Neutrophils # (auto) 4.97 K/uL (1.40-6.50); Platelet Count 290 K/uL (130-400); RDW Coefficient of Variation 11.2 % (11.5-14.5); RDW Standard Deviation 38.2 fL (36.4-46.3); Red Blood Count 2.98 M/uL (4.70-6.10); White Blood Count 7.31 K/ul (4.8-10.8)
--- NOTE | 2024-03-23 09:52 | Orthopedic Progress Note ---
Date of Service March 23, 2024 Assessment & Plan (1) Status post right knee replacement: Plan: The patient's postsurgical dressings will be kept in place. Continue with his SAMUEL hose for DVT prophylaxis. Continue Eliquis 2.5 mg twice daily. He missed his dose this morning according to his , and he will be restarted this evening. Continue ice and elevation for pain and edema control. We will stop his narcotics. Start Tylenol 650 mg every 6 hours and Celebrex 200 mg daily for pain control. Stat PT/OT evaluations in the morning in anticipation of retirement facility placement. This will be applied for tomorrow. The patient is clearly not doing well at home and does not have the support network that he needs. [facility] was made while he was initially inpatient after surgery, and was declined at that time. Weightbearing as tolerated on the right leg with his walker. (2) Confusion: Plan: The patient is on 2 benzodiazepines. Addition of oxycodone may have exacerbated his confusion. His narcotic will be stopped. Start Tylenol and Celebrex as stated. Consult the medical service for evaluation. The patient is known to drink liquor, and his states it is heavy at times. This may have also added to his confusion. I will discuss the antibiotic supplementation with the hospitalist team. He does not appear to have a urinary tract infection. There is no significant anemia or electrolyte imbalance to contribute to his symptoms. Chest x-ray does not suggest infection. Therefore, I think his confusion symptoms may be medication induced. Admission and Anticipated Discharge Date Admission Date: March 22, 2024 Subjective This 78-year-old male seen this morning after being admitted yesterday for confusion after undergoing right total knee arthroplasty with Dr. Fuller on March 17. Patient is still slightly confused this morning and angry that he is admitted. He states that his is at home wondering where he is at. I advised the patient that his is aware that he is in the hospital and that there is a high likelihood that he will need to go to a rehab facility for skilled rehab following this major surgery. Currently the patient denies chest pain, shortness of breath, fever, chills, sweats, numbness or tingling in his right lower extremity. He also denies nausea, vomiting, diarrhea or difficulty voiding. Review of Systems Review of Systems: All systems reviewed & are unremarkable except as noted in Subjective Physical Exam Physical Exam: Right knee: Dressing was clean dry and intact and left in place. Patient is able to perform active straight leg raise test. He is able to actively dorsi and plantarflex foot. His calf soft and supple nontender to palpation. Knee range of motion is from 2 degrees of extension to 80 degrees of flexion actively. Patient is able to detect light sensation to touch of the pads of all digits. He is neurovascularly intact in right lower extremity. Results & Data Vital Signs (Past 12 Hours) Vital Signs Temp Pulse Resp BP Pulse Ox O2 Del Method 03/23/24 07:59 37.1 C 84 16 129/75 96 Room Air Diagnostic Findings Laboratory Results WBC 7.31 K/ul (4.8-10.8) 03/23/24 07:39 RBC 2.98 M/uL (4.70-6.10) L 03/23/24 07:39 Hgb 9.8 g/dl (14.0-18.0) L 03/23/24 07:39 Hct 27.8 % (42.0-52.0) L 03/23/24 07:39 MCV 93.3 fL (80.0-100.0) 03/23/24 07:39 MCH 32.9 pg (25.0-34.0) 03/23/24 07:39 MCHC 35.3 g/dL (32.0-36.0) 03/23/24 07:39 RDW Std Deviation 38.2 fL (36.4-46.3) 03/23/24 07:39 RDW Coeff of Karla 11.2 % (11.5-14.5) L 03/23/24 07:39 Plt Count 290 K/uL (130-400) 03/23/24 07:39 MPV 9.5 fL (9.4-12.4) 03/23/24 07:39 Immature Gran % (Auto) 0.4 % 03/23/24 07:39 Neut % (Auto) 68.0 % 03/23/24 07:39 Lymph % (Auto) 13.8 % 03/23/24 07:39 [place] % (Auto) 14.1 % 03/23/24 07:39 Eos % (Auto) 3.0 % 03/23/24 07:39 Baso % (Auto) 0.7 % 03/23/24 07:39 Neut # (Auto) 4.97 K/uL (1.40-6.50) 03/23/24 07:39 Lymph # (Auto) 1.01 K/uL (1.20-3.40) L 03/23/24 07:39 [place] # (Auto) 1.03 K/uL (0.11-0.59) H 03/23/24 07:39 Eos # (Auto) 0.22 K/uL (0.00-0.50) 03/23/24 07:39 Baso # (Auto) 0.05 K/uL (0.00-0.20) 03/23/24 07:39 Immature Gran # (Auto) 0.03 K/uL (0.01-0.20) 03/23/24 07:39 Sodium 134 mmol/L (136-145) L 03/22/24 14:23 Potassium 4.5 mmol/L (3.5-5.1) 03/22/24 14:23 Chloride 98 mmol/L (98-107) 03/22/24 14:23 Carbon Dioxide 30 mmol/L (21-32) 03/22/24 14:23 Anion Gap 6 (3-11) 03/22/24 14:23 BUN 13 mg/dl (6-23) 03/22/24 14:23 Creatinine 0.60 mg/dl (0.6-1.4) 03/22/24 14:23 Est Cr Clr Drug Dosing Not Reportable 03/22/24 14:23 Est GFR ( Amer) 110.8 ml/min 03/22/24 14:23 Est GFR (Non-Af Amer) 95.6 ml/min 03/22/24 14:23 BUN/Creatinine Ratio 21.7 (10-20) H 03/22/24 14:23 Glucose 125 mg/dl (70-99(Fasting)) H 03/22/24 14:23 Calcium 9.3 mg/dl (8.6-10.3) 03/22/24 14:23 Total Bilirubin 1.0 mg/dl (0.2-1.0) 03/22/24 14:23 AST 16 U/L (13-39) 03/22/24 14:23 ALT 9 U/L (7-52) 03/22/24 14:23 Alkaline Phosphatase 51 U/L (34-104) 03/22/24 14:23 C-Reactive Protein 9.59 mg/dl (0-0.5) H 03/23/24 07:39 Total Protein 7.2 gm/dl (6.0-8.3) 03/22/24 14:23 Albumin 3.9 gm/dl (3.4-5.0) 03/22/24 14:23 Globulin 3.3 gm/dl (2.5-4.0) 03/22/24 14:23 Albumin/Globulin Ratio 1.2 (0.9-2) 03/22/24 14:23 Procalcitonin 0.05 ng/ml (0-0.5) 03/22/24 14:23 Urine Color Yellow 03/22/24 15:25 Urine Appearance Clear (Clear) 03/22/24 15:25 Urine pH 6.5 (4.5-7.5) 03/22/24 15:25 Ur Specific [place] 1.013 (1.000-1.030) 03/22/24 15:25 Urine Protein Negative (Negative) 03/22/24 15:25 Urine Glucose (UA) Negative (Negative) 03/22/24 15:25 Urine Ketones 1+ (Negative) H 03/22/24 15:25 Urine Blood Negative (Negative) 03/22/24 15:25 Urine Nitrite Negative (Negative) 03/22/24 15:25 Urine Bilirubin Negative (Negative) 03/22/24 15:25 Urine Urobilinogen Negative (Negative) 03/22/24 15:25 Ur Leukocyte Esterase Negative (Negative) 03/22/24 15:25 Impressions Knee X-Ray 03/22/24 16:15 XR knee RT 3V CLINICAL HISTORY: R knee pain s/p surgery COMPARISON: Right knee radiograph March 17, 2024. FINDINGS: Alignment of the total right knee arthroplasty is anatomic. There is no periprosthetic fracture or unexpected radiopaque foreign body. There are skin bradly. Soft tissue swelling is present. There is a probable right knee joint effusion. IMPRESSION: 1. Intact total right knee arthroplasty. No periprosthetic fractures. No unexpected radiopaque foreign bodies. 2. Right knee soft tissue swelling with a knee joint effusion. ACT 112: Negative or not required by law. Electronically signed by: Clint Nelson M.D. 03/22/2024 4:56 PM Chest X-Ray 03/22/24 17:25 XR chest 1V portable CLINICAL HISTORY: generalized confusion, elevated WBC COMPARISON STUDY: Chest radiograph February 27, 2024. FINDINGS: Lung volumes are normal. There is no consolidation to suggest pneumonia. A calcified right lung granuloma is unchanged. This is benign. There is no pneumothorax or pleural effusion. Cardiac size is normal. Mediastinal contours are normal. There is no evidence for pulmonary edema. IMPRESSION: No acute cardiopulmonary findings. ACT 112: Negative or not required by law. Electronically signed by: Clint Nelson M.D. 03/22/2024 6:07 PM
--- NOTE | 2024-03-23 13:45 | Orthopedic Progress Note ---
Date of Service March 23, 2024 Assessment & Plan Admission and Anticipated Discharge Date Admission Date: March 22, 2024 Orthopedic Progress Note Patient seen this afternoon with his spouse. Pain at this point in time manage managed by the present medications. He clearly has issues with taking medications at home that are prescribed and controlled substances that I have nothing to do with. At this point in time he needs to have medical management try to help him get off of these medications and needs to be weaned appropriately. Orthopedically is neurovascular check is normal. He can do a straight leg raise. He does ankle pumps. His calves are nontender. I request medicine to see him again to make sure that they can manage these medications that I have prescribed. They have been prescribed by his primary care providers for years. From orthopedic perspective he can be discharged anytime. I suggest we maximize his nutrition with vitamin B substances to ensure that there is no overlay from all alcohol use. This will be ordered. Medical consult ordered as well. Placement efforts are underway.
[2024-03-23] MEDS ORDERED: HYDROmorphone HCL 2 MG TAB PO PRN (13:48)
[2024-03-23] MEDS ORDERED: ACETAMINOPHEN 500 MG TAB PO PRN (15:03)
[2024-03-23] MEDS: MULTI-VITAMIN INFUSION 10 ML, THIAMINE HCL 100 MG, FOLIC ACID 1 MG in SODIUM CHLORIDE 0... IV ONE (15:10)
[2024-03-23] MEDS ORDERED: HYDROCODONE/ACETAMOPHEN 5/325MG TAB PO PRN (15:36)
--- NOTE | 2024-03-23 15:47 | Hospitalist Progress Note ---
Date of Service March 23, 2024 Assessment & Plan (1) Status post total knee replacement: Plan: VTE / Bowel management per primary orthopedic team Admitted by orthopedics for PT/OT likely need for placement (2) Confusion: Plan: Suspect due to combination of benzodiazepines and opiates given lack of infection found Discussed with orthopedics on admission and planning on discontinuing opiates - however PO Dilaudid was reintroduced by Dr. Fuller today, discussed with Dr. Campbell and changed to [place] for less risk of confusion, but also with scheduled Tylenol patient has been taking Triazolam at bedtime to aid sleep for over 2 decades - pt and report that there have never been discussions about weaning off of this, but a few months ago he started to experience withdrawal symptoms after not having the medication for a few days The clonazepam been prescribed at 0.5mg BID prn - patient is unsure if he has been taking this everyday or not, but it has been filled consistently since 09/2022. Given that this cannot be stopped abruptly will leave 0.5mg HS prn (patient reports he slept well with this) There were also concerns for ETOH withdrawal - pt initially denied consumption on admission but reports to me two glasses of wine and 1 rum and coke most nights. He reports that he measures his rum with a shot glass. He denies ETOH consumption since surgery 03/17 and reports that he had been cutting back prior to surgery. confirms this at bedside. -Banana bag given my primary team - will add folate and B1 PO supplemtation daily Patient denied issues with spasms during both of my encounters today. Robaxin has been discontinued by ortho and agree with this. reports that there was no confusion or brain fog prior to surgery. (3) Leucocytosis: Plan: No infectious cause found on admission from history/exam/UA/CXR down trending - no antibiotics indicated (4) BPH (benign prostatic hyperplasia): Plan: PVR 74ml bladder scan Consider tamsulosin if continued significant nocturia (5) Hyperlipidemia: Plan: Continue ezetimibe + Simvastatin Plan Dispo: medically stable, confusion improving Thank you for allowing us to participate in the care of this patient, please reach out with any questions or concerns Admission and Anticipated Discharge Date Admission Date: March 22, 2024 Supervising Physician Co-Signing Physician Notes Attending Attestation - Chart reviewed, care plan d/w LANCE [place]. I agree with the marino components of her documentation. Humberto Campbell MD Subjective Patient seen multiple times during the day, present at bedside for second visit. She is able to give more details on his medication and alcohol use. They deny any periods of confusion or forgetfullness prior to having surgery He denied pain or spams during my encounter Review of Systems Review of Systems: All systems reviewed & are unremarkable except as noted in Subjective Physical Exam Physical Exam: General: NAD, VS as above Resp: normal respiratory effort, lungs clear to auscultation CV: RRR, no murmur, Abd: normal bowel sounds, non tender, no hepatosplenomegaly Extremities: Moves all extremities, right knee brace in place with ice, able to move toes distally Neuro: A&O x3, answers questions appropriately Skin: intact, no lesions noted Results & Data Results & Data Vital Signs (Past 12 Hours) Vital Signs Temp Pulse Resp BP Pulse Ox O2 Del Method 03/23/24 15:15 36.7 C 89 18 119/70 99 Room Air 03/23/24 07:59 37.1 C 84 16 129/75 96 Room Air PG Care Time/CCT Total # of Minutes Spent Total Time Spent with Patient: Total time spent is greater than 50% in coordination of care (as documented) at patient's floor/unit and/or counseling patient: Coding Level of Care Code 94188 SUB INP/OBS CARE 3/50MIN Diagnoses Status post total knee replacement Z96.659 Confusion R41.0 Leucocytosis D72.829 BPH (benign prostatic hyperplasia) N40.0 Hyperlipidemia E78.5
[2024-03-23] MEDS: HYDROCODONE/ACETAMOPHEN 5/325MG TAB PO PRN (18:09)
[2024-03-23] MEDS: ACETAMINOPHEN 500 MG TAB PO SCH (20:25)
--- NOTE | 2024-03-24 06:44 | Orthopedic Progress Note ---
Date of Service March 24, 2024 Assessment & Plan Admission and Anticipated Discharge Date Admission Date: March 22, 2024 Orthopedic Progress Note Patient remains oriented but at times is confused and perseverates over medications and family calls. He feels like he is and not being allowed to call out. Vital signs are stable he is afebrile. Neurovascular check femoral sciatic nerve is normal. Wound dressing clean dry and intact. Assessment orthopedically doing well medically still has issues. He is need to be settled. He needs to be placed. His will not accept him at home. This is a social admission with mental health and medication utilization issues. Await case management input.
[2024-03-24] MEDS: FOLIC ACID 400 MCG TAB PO SCH (08:10)
[2024-03-24] MEDS: THIAMINE HCL 100 MG TAB PO SCH (08:10)
--- NOTE | 2024-03-24 12:25 | Hospitalist Progress Note ---
Date of Service March 24, 2024 Assessment & Plan (1) Status post total knee replacement: Plan: VTE / Bowel management per primary orthopedic team Admitted by orthopedics for PT/OT likely need for placement (2) Confusion: Plan: Suspect due to combination of benzodiazepines and opiates given lack of infection found Discussed with orthopedics on admission and planning on discontinuing opiates - however PO Dilaudid was reintroduced by Dr. Fuller today, discussed with Dr. Campbell and changed to [place] for less risk of confusion, but also with scheduled Tylenol patient has been taking Triazolam at bedtime to aid sleep for over 2 decades - pt and report that there have never been discussions about weaning off of this, but a few months ago he started to experience withdrawal symptoms after not having the medication for a few days The clonazepam been prescribed at 0.5mg BID prn - patient is unsure if he has been taking this everyday or not, but it has been filled consistently since 09/2022. Given that this cannot be stopped abruptly will leave 0.5mg HS prn (patient reports he slept well with this) There were also concerns for ETOH withdrawal - pt initially denied consumption on admission but reports to me two glasses of wine and 1 rum and coke most nights. He reports that he measures his rum with a shot glass. He denies ETOH consumption since surgery 03/17 and reports that he had been cutting back prior to surgery. confirms this at bedside. No signs of active ETOH withdrawal. -Banana bag given my primary team - Continue folate and B1 PO supplementation daily Robaxin has been discontinued by ortho and agree with this. reports that there was no confusion or brain fog prior to surgery. A complete workup would include a brain MRI - ordered, pending. (3) Leucocytosis: Plan: No infectious cause found on admission from history/exam/UA/CXR down trending - no antibiotics indicated (4) BPH (benign prostatic hyperplasia): Plan: PVR 74ml bladder scan Consider tamsulosin if continued significant nocturia (5) Hyperlipidemia: Plan: Continue ezetimibe + Simvastatin Plan Dispo: medically stable Thank you for allowing us to participate in the care of this patient, please reach out with any questions or concerns Family updated at bedside 03/23, 03/24 Admission and Anticipated Discharge Date Admission Date: March 22, 2024 Supervising Physician Co-Signing Physician Notes Attending Attestation - Chart reviewed, care plan d/w LANCE [place]. I agree with the marino components of her documentation. Humberto Campbell MD Subjective Patient seen lying in bed, complaining about leg pain. When i asked the orientation questions - he thinks he is in a research center in [facility], but knows that it is February 2024 at bedside also feels that patient has been more confused compared to yesterday Review of Systems Review of Systems: All systems reviewed & are unremarkable except as noted in Subjective Physical Exam Physical Exam: General: NAD, VS as above Resp: normal respiratory effort, lungs clear to auscultation CV: RRR, no murmur, Abd: normal bowel sounds, non tender, no hepatosplenomegaly Neuro: A&O x2, answers questions appropriately Skin: intact, no lesions noted Results & Data Results & Data Vital Signs (Past 12 Hours) Vital Signs Temp Pulse Pulse Resp BP Pulse Ox O2 Del Method 03/24/24 11:29 36.6 C 84 20 172/92 H 99 Room Air 03/24/24 08:02 37.2 C 94 H 16 146/80 H 96 Room Air 03/24/24 07:06 36.8 C 89 18 148/81 H 97 Room Air PG Care Time/CCT Total # of Minutes Spent Total Time Spent with Patient: Total time spent is greater than 50% in coordination of care (as documented) at patient's floor/unit and/or counseling patient: Coding Level of Care Code 40159 SUB INP/OBS CARE 2/35MIN Diagnoses Status post total knee replacement Z96.659 Confusion R41.0 Leucocytosis D72.829 BPH (benign prostatic hyperplasia) N40.0 Hyperlipidemia E78.5
[2024-03-24] MEDS: TROLAMINE SALICYLATE 10% CRM 255 APPLN/85 GM TUBE EXT PRN (13:19)
--- NOTE | 2024-03-24 17:05 | Magnetic Resonance Report ---
Brain MRI WITHOUT CONTRAST HISTORY: worsening confusion, r/o stroke TECHNIQUE: Multiplanar multisequence MRI of the brain was performed without the use of contrast. COMPARISON STUDY: Head CT 03/15/2022. FINDINGS: There is no mass, hematoma, midline shift, or acute infarct. The paranasal sinuses are hesham r. The mastoid air cells are clear. The ventricles and sulci demonstrate moderate age-related involut ional changes. Scattered foci of T2 hyperintensity seen within the periventricular and subcortical wh ite matter are nonspecific but suggestive of moderate microvascular ischemic changes. The major vascu lar flow voids at the skull base are well-maintained. IMPRESSION: 1. No acute infarct or intracranial hemorrhage. 2. Moderate atrophy and microvascular ischemic changes are noted. ACT 112: Negative or not required by law. Electronically signed by: Jorge Reeves M.D. 03/24/2024 5:03 PM
[2024-03-24] MEDS: TRIAZOLAM 0.25 MG PO SCH (20:48)
[2024-03-24] MEDS ORDERED: TRIAZOLAM 0.25 MG PO SCH (21:00)
--- NOTE | 2024-03-25 06:52 | Orthopedic Progress Note ---
Date of Service March 25, 2024 Assessment & Plan Admission and Anticipated Discharge Date Admission Date: March 22, 2024 Orthopedic Progress Note Patient lying and resting comfortably in bed. Denies chest pain shortness of breath fever chills nausea vomiting or headache. Vital signs are stable he is afebrile. Wound dressing clean dry and intact intact. Changed him to a Silverlon dressing yesterday. Neurovascular check femoral sciatic nerve is normal. Can do a straight leg raise. Is not really doing his exercises with any kind of intensity. Emphasized the need for him to do so. Range of motion in my presence is -5 to roughly 80 degrees. He has not been doing his heel roll to help with his extension. Emphasized the benefit of this. He states he understands but clearly has some memory issues that prohibit this. He does not require any new laboratory work everything has been fine there please do not continue to order laboratory work. 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 This is contributing to his personality and memory issues. Assessment status post right total knee replacement awaiting placement issues. Hopefully this will be finalized today with case management. Try to keep narcotic use to a minimum. Medications adjusted per hospitalist. Can follow-up in the office in 1 week for staple removal.
[2024-03-25] MEDS ORDERED: IBUPROFEN 200 MG TAB PO PRN (07:01)
[2024-03-25 07:20] VITALS: BP 145/75; RESP 18; TEMP 97.3; O2SAT 97
--- NOTE | 2024-03-25 09:45 | Orthopedic Progress Note ---
Date of Service March 25, 2024 Assessment & Plan (1) Status post total knee replacement: Plan: Leave the Silverlon dressing in place until seen in the office next week for staple removal. Continue with ice, elevation, and compression for edema control. Continue with PT/OT to improve his motor function, strength, and balance. The Silverlon dressing is waterproof, but the knee should not be submerged. (2) Confusion: Plan: Continue abstaining from narcotic medication. Limit use of his Robaxin. Waiting for insurance authorization for placement, as he had significant failure to thrive at home. Will continue to follow while he is admitted. MRI of the brain obtained by the hospitalist service showed no infarct or intracranial bleed. Moderate microvascular disease and atrophy was noted. Return to the office next week on the fifth for staple removal. Admission and Anticipated Discharge Date Admission Date: March 22, 2024 Subjective This 78-year-old male is seen today in his room. He continues to have some confusion. He is wondering where his cell phone is. He states that he has not seen it since he came out of the [employer] garage. He has no significant pain at this time. He is wondering how his will contacted. He denies any chest pain or shortness of breath. No nausea or vomiting. No numbness or tingling. Physical Exam Physical Exam: General: Petite, elderly male, in no acute distress. Laying in bed. Alert and pleasantly confused. Conversant. Skin: Warm dry with good turgor. No rashes. No significant ecchymosis. Healin g surgical incision is present on the left right knee. Silverlon dressing is in place. Minimal peripheral edema. Musculoskeletal: The patient has intact motor function to the right hip, knee, and ankle. He is able to perform a straight leg raise. Fairly good flexion and extension of the knee with minimal coaxing. Neurologic: Gross sensation is intact across the right leg by soft touch. Peripheral pulses are 2+. Results & Data Vital Signs (Past 12 Hours) Vital Signs Temp Pulse Resp BP Pulse Ox O2 Del Method 03/25/24 07:17 36.3 C L 77 18 145/75 H 97 Room Air
--- NOTE | 2024-03-25 09:45 | Discharge Summary ---
Date of Service March 25, 2024 Admission HPI Per Admitting Provider This 78-year-old male was initially seen in the ED on 03/22 for failure to thrive at home after previous right total knee arthroplasty done by Dr. Fuller on 03/17/2024. Patient did well postoperatively and was discharged to home on 03/18/2024. He was being cared for by his . She states that over the weekend he became more confused and was complaining of urinary urgency and frequency. The patient did not have a urinary catheter at the time of surgery. There were no fevers or chills. No sweats. He had some episodes of diarrhea and frequent loose stools. His stated she can no longer take care of him at home due to her own physical ailments. The patient denied any chest pain, shortness of breath, nausea, vomiting, or abdominal pain. Admission Exam (Per Admitting) Constitutional Well-developed, petite, elderly male, in no acute distress. Laying in bed. Alert and oriented only to place. ENMT Normocephalic atraumatic. Eyes PERRLA, EOMI. No conjunctiva or scleral injection. Ears TMs intact bilaterally with good light reflexes. No erythema or bulging. No hemotympanum. Canals are patent. Nares patent bilaterally without turbinate enlargement. No significant drainage. No epistaxis. Oropharynx without erythema or exudate. Uvula midline, oral mucosa moist. No lesions present. Respiratory Lungs are clear to auscultation. No crackles rhonchi or wheezing. Good air movement. The patient is able to take a deep breath. Cardiovascular Heart RRR. No MGR. Peripheral pulses are 2+. Gastrointestinal (Abdomen) Abdomen was inspected, auscultated, and palpated. Bowel sounds present x 4. Soft, nontender to palpation. No hepato-splenomegaly. No masses noted. No rebound. Musculoskeletal Right leg has intact motor function to the hip, knee, ankle. He is able to set his quad and perform a straight leg raise. Knee flexion to greater than 60 degrees without significant difficulty. Nearly full extension. Stable collateral ligaments. Neurologic Gross sensation is intact across the right leg by soft touch. Discharge Data Consultations 03/22/24 19:20 ED Decision to Admit Stat 03/22/24 23:10 Consult Hospitalist Routine 03/24/24 08:42 Consult Psychiatry Routine Hospital Course (1) Confusion: The patient was initially evaluated in the ED and found to have increased confusion compared to his initial discharge after right total knee arthroplasty. His was unable to care for his increased needs at home. He was having difficulty following instructions from his home therapist. He was therefore admitted to the hospital for retirement placement. There was concern for alcohol as a component of his confusion. He was started on a B vitamin regimen. His Eliquis was continued for DVT prophylaxis. He remained confused during the evening. Vitals remained stable. Lab work and imaging study did not reveal any infection, dehydration, or anemia. The patient was perseverating about his narcotic pain medication. Hospitalist consultation was obtained for medical management. He remained otherwise stable. Reevaluation on 03/23 revealed continued confusion. He continued perseverating about his pain medication. The possibility of pharmaceutical induced confusion was considered and discussed. His narcotic medication was held, given that he was also on 2 benzodiazepine medications. Despite holding a narcotic, his confusion did not seem to improve. He was able to participate in PT and OT. group home facility placement was recommended. The patient was initially reluctant, but agreed to placement. Appetite was poor. He remained stable throughout the rest of the day and evening. On 03/24 the patient was again reassessed. His confusion persisted. This was despite removal of narcotics. Possibility of psychiatric component, including advancing dementia was considered. Psychiatry was consulted. Unfortunately he was not evaluated before departure on 03/25. He was able to participate in PT/OT. Appetite continued to be poor. MRI of the brain was obtained that showed microvascular disease and atrophy of the brain. No acute findings were noted. A Silverlon dressing was placed over his wound and should be left in place for the next week. It is waterproof but he should avoid submerging the leg. He was reassessed on 03/25 and continued with confusion. Insurance authorization was obtained for transfer to [facility] for retirement. Transport arrangements were made and the patient departed the hospital facility. Vitals remained stable with BP of 145/75, pulse 94, respirations 18, O2 sat 97% on room air. Afebrile with temp of 36.3. Plan Follow-up in the office on 04/01 for staple removal. Avoid narcotics. Continue PT/OT. Weight-bear as tolerated.
--- NOTE | 2024-03-25 09:53 | Hospitalist Progress Note ---
Date of Service March 25, 2024 Assessment & Plan (1) Status post total knee replacement: Plan: VTE / Bowel management per primary orthopedic team Admitted by orthopedics for PT/OT likely need for placement (2) Confusion: Plan: Toxic encephalopathy due to combination of benzodiazepine and opiates Suspect due to combination of benzodiazepines and opiates given lack of infection found. Discussed with orthopedics on admission and planning on discontinuing opiates - however PO Dilaudid was reintroduced by Dr. Fuller today, discussed with Dr. Campbell and changed to [place] for less risk of confusion, but also with scheduled Tylenol patient has been taking Triazolam at bedtime to aid sleep for over 2 decades - pt and report that there have never been discussions about weaning off of this, but a few months ago he started to experience withdrawal symptoms after not having the medication for a few days The clonazepam been prescribed at 0.5mg BID prn - patient is unsure if he has been taking this everyday or not, but it has been filled consistently since 09/2022. Given that this cannot be stopped abruptly will leave 0.5mg HS prn (patient reports he slept well with this) There were also concerns for ETOH withdrawal - pt initially denied consumption on admission but reports to me two glasses of wine and 1 rum and coke most nights. He reports that he measures his rum with a shot glass. He denies ETOH consumption since surgery 03/17 and reports that he had been cutting back prior to surgery. confirms this at bedside. No signs of active ETOH withdrawal. -Banana bag given my primary team -Continue folate and B1 PO supplementation daily Brain MRI - no acute infarct or intracranial hemorrhage, moderate atrophy and microvascular changes Agree with discharge today with the following recommendations * STOP Clonazepam (klonopin) * STOP methocarbamol (robaxin) * STOP drinking alcohol * Daily Vitamin B1 and folate supplementation * Okay to continue triazolam at this time but discuss weaning with your provider * Please Follow up with your PCP within one week of discharge from [facility] (3) Leucocytosis: Plan: No infectious cause found on admission from history/exam/UA/CXR down trending - no antibiotics indicated (4) BPH (benign prostatic hyperplasia): Plan: PVR 74ml bladder scan (5) Hyperlipidemia: Plan: Continue ezetimibe + Simvastatin Plan Dispo: medically stable, agree with discharge today Thank you for allowing us to participate in the care of this patient, please reach out with any questions or concerns Family updated at bedside 03/23, 03/24 Admission and Anticipated Discharge Date Admission Date: March 22, 2024 Supervising Physician Co-Signing Physician Notes Attending Attestation - Chart reviewed, care plan d/w LANCE [place]. I agree with the marino components of her documentation. To d/c to SNF today. Humberto Campbell MD Subjective Patient alone in hospital room, more oriented today. Plan for discharge to [facility] discussed stopping clonazepam Review of Systems 2 Review of Systems: All systems reviewed & are unremarkable except as noted in Subjective Physical Exam Physical Exam: General: NAD, vitals as above, sitting on the side of bed Pulm: breathing unlabored CV: well perfused extremities: moves all extremities Results & Data Results & Data Vital Signs (Past 12 Hours) Vital Signs Temp Pulse Resp BP Pulse Ox O2 Del Method 03/25/24 07:17 36.3 C L 77 18 145/75 H 97 Room Air PG Care Time/CCT Total # of Minutes Spent Total Time Spent with Patient: Total time spent is greater than 50% in coordination of care (as documented) at patient's floor/unit and/or counseling patient: Coding Level of Care Code 87768 SUB INP/OBS CARE 2/35MIN Diagnoses Status post total knee replacement Z96.659 Confusion R41.0 Leucocytosis D72.829 BPH (benign prostatic hyperplasia) N40.0 Hyperlipidemia E78.5
[2024-03-25 09:56] VITALS: PULSE 94
--- NOTE | 2024-03-25 17:44 | Communication Note ---
Date of Service: March 25, 2024 Attempted to clarify consult reason with primary team. Per note review pt pre surgery functioning was stable, no indication of confusion or behavioral issues. No acute needs presented at this time. Consult cancelled.
== END 2024-03-25 11:35 | DRG 92 ==
LOC: ED 13:40 → 3N 18:54
DX: G92.8 Other toxic encephalopathy; T42.4X5A Adverse effect of benzodiazepines, initial encounter; F10.239 Alcohol dependence with withdrawal, unspecified; Z79.899 Other long term (current) drug therapy; Z86.16 Personal history of COVID-19; T40.605A Adverse effect of unspecified narcotics, initial encounter; Z96.651 Presence of right artificial knee joint; Z79.01 Long term (current) use of anticoagulants; R62.7 Adult failure to thrive; D72.829 Elevated white blood cell count, unspecified; Z88.1 Allergy status to other antibiotic agents; E78.5 Hyperlipidemia, unspecified; I48.91 Unspecified atrial fibrillation; N40.0 Benign prostatic hyperplasia without lower urinary tract symptoms